=== PATIENT | female | born 1985 | race Caucasian/White ===

== ENCOUNTER 2024-04-27 03:31 | Emergency (ER) | payer OTHER, SELFPAY ==
[2024-04-27 03:40] VITALS: BP 161/108
[2024-04-27 03:41] VITALS: BP 166/108
--- NOTE | 2024-04-27 03:49 | ED.GENMED ---
History of Present Illness
General
Chief Complaint: Overdose Unintentional
Source: patient, ambulance crew and police
Exam Limitations: clinical condition and altered mental status
Time Seen by Provider: 04/27/24 03:34
Nursing documentation reviewed up to this point in time: agreed with
History of Present Illness
History of Present Illness:
39-year-old female brought in by EMS from the [facility]. She was being examined for present. The medical staff noted that she was only alert and oriented x 1. They sent her to the emergency department for evaluation.
Patient denies any trauma. She states that she is homeless. When asked if she did any drugs she said yes when asked which ones she did, she stated 'all of them '. Patient reports no chest pain or shortness of breath. History is limited due to
patient condition.
Review of Systems
Review of Systems
Allergies reviewed?: Yes
Unable to obtain full review of systems at this time due to: due to acuity
Other source history: ambulance crew
All Other Systems: Not applicable
Constitutional: Denies fever or fatigue
Phy Exam
General Physical Exam
General Presentation: no apparent distress
General age: appears older than age
General Skin: warm and dry
General Habitus: cachetic and poor hygiene
General Mental: appears intoxicated
General Hydration: appears well hydrated
Musculoskeletal Exam
Musculoskeletal Exam: full ROM
Skin Exam
Skin Exam: normal color, warm/dry and no rash
Course
Orders/Labs/Results
Orders:
Orders
04/27/24 03:48
Electrocardiogram (*1) Stat
Reason for Study: Other
Other Reason for Exam: overdose
CT Head W/o Iv Contrast Urgent
Comment:
Reason For Exam: ams
EKG- Treatment ONCE
0.9% Sodium Chloride 1000 ml [Nss] 1,000 ml IV BOLUS
04/27/24 05:15
Acetaminophen Urgent
Alcohol Urgent
Salicylate Urgent
Abnormal Lab Results
04/27/24
05:15
Salicylates < 1.0 L mg/dl
(2.0-20.0)
Acetaminophen < 10 L ug/ml
(10-30)
04/27/24 03:48
04/27/24 05:42
Vital Signs
Initial and Last Documented VS:
Initial Vital Signs
Pulse Resp BP
94 21 161/108
04/27/24 03:40 04/27/24 03:40 04/27/24 03:40
Last Documented Vital Signs
Pulse Resp BP Pulse Ox
102 24 147/92 100
04/27/24 05:19 04/27/24 05:19 04/27/24 07:00 04/27/24 07:09
*Critical Care Note
Total Time (30-74mins, 75-104mins- exclusive of procedures): Not Applicable
Update Note
Update Note:
04/27/2024 0515 AM: Attempted to start an IV using ultrasound but was unsuccessful. Patient's veins are sclerotic. IV team is still attempting to get
04/27/2024 0600 AM: Patient is awake and alert. She is oriented. She is still somnolent. Patient going over to CAT scan.
CT head without IV contrast
IMPRESSION:
No hemorrhage or other acute intracranial abnormality.
Finalized at 5:40 AM EST
ED Attending Note
-
Portions of this chart may have been created with voice recognition software.� Occasional wrong word or��sound alike� substitutions may have occurred due to the inherent limitations of voice recognition software.
Discharge Plan
Departure
Patient Disposition: [facility]
Date of Disposition: 04/27/24
Time of Disposition: 07:07
Discharge Problem:
Overdose
Instructions: Accidental Overdose (DC), BLOOD PRESSURE
Prescriptions:
No Action
clonidine HCl 0.1 mg Tablet
0.1 mg PO TID
loperamide [Anti-Diarrhea] 2 mg Tablet
2 mg PO TID PRN (Reason: diarrhea)
clonazepam 2 mg Tablet
2 mg PO BID
Referrals:
[facility] [Family Provider] -
Activity Restrictions/Additional Instructions:
Patiently medically cleared for incarceration
It was a pleasure meeting you and taking part in your care. We hope for your continued healing and wellness.
Please read discharge instructions in their entirety. However, they are for general education and may not describe your exact diagnosis at discharge. Information on your ER visit and medical conditions were discussed with you along with appropriate
follow up information...
If indicated, please take your medications as instructed and indicated on discharge paperwork.
Please schedule a follow up appointment as directed. Call to schedule an appointment
Please return to the emergency department with ANY change in, persisting, or worsening of symptoms. If any of your symptoms do not improve, or persist, or become more severe within 6-12 hours, please return to the emergency department for further
care.
Please return to the emergency department if you develop a headache, neck pain/stiffness, fever greater than 100.4F, chest pain, shortness of breath, persistent nausea, vomiting, slurred speech, difficulty walking, numbness/tingling, weakness, signs
of infection or any other symptoms that are worrisome to you.
If you have any questions or concerns please do not hesitate to call the Hospital at
Interventions
Interventions:
*Risk Screen - Suicide Last Done: 04/27/24 03:36
*General Assessment Last Done: 04/27/24 07:15
*Neglect/Abuse Screening Last Done: 04/27/24 03:36
ED- Fall Risk Assessment Last Done: 04/27/24 04:00
*ED COVID-19 Vaccine History Last Done: 04/27/24 03:36
*Nursing Disposition Last Done: 04/27/24 07:15
ED- Cardiac Assessment Last Done: 04/27/24 04:00
ED- Neurological Assessment Last Done: 04/27/24 04:00
ED-Psychological Assessment Last Done: 04/27/24 04:00
ED- Pulmonary Assessment Last Done: 04/27/24 04:00
Discharge Date and Time
Discharge Date/Time: 04/27/24 07:15
Print Language: GUATEMALAN
[2024-04-27 04:01] VITALS: BP 158/105
[2024-04-27 05:01] VITALS: BP 141/121
[2024-04-27 05:45] LABS: Acetaminophen < 10 ug/ml (10-30); Alcohol None Detected; Salicylate < 1.0 mg/dl (2.0-20.0)
[2024-04-27 06:28] VITALS: BP 142/97
[2024-04-27 07:00] VITALS: BP 147/92
== END 2024-04-27 07:15 ==
LOC: EMR 03:31
PROVIDERS: EMERGENCY PHYSICIAN Student in an Organized Health Care Education/Training Program
DX: T50.901A Poisoning by unspecified drugs, medicaments and biological substances, accidental (unintentional), initial encounter (principal); Y92.9 Unspecified place or not applicable; Z59.00 Homelessness unspecified
CPT/HCPCS: 99284; 70450; 80143; 80179; 82077; 93005